=== PATIENT | male | born 1975 | race Caucasian/White ===

== ENCOUNTER 2019-04-16 01:47 | Observation (INO) | payer OTHER ==
--- NOTE | 2019-04-16 02:05 | PDOC ---
Attending Attestation - Resident Resident Name: Sadi Jarrell - ED Attending Attestation I have performed the following: I have examined & evaluated the patient, The case was reviewed & discussed with the resident, I agree w/resident's findings & plan - HPI HPI: 04/16/19 04:30 Pt had a syncopal episode today at home and he was brought in by his family. This has happened to him in the past. Pt has no complaints at present. He si somnolent. - Physicial Exam PE: 04/16/19 04:32 Pt is morbidly obese. - Medical Decision Making 04/16/19 02:52 Pt has no EKG for comparison 04/16/19 04:31 Patient Name: FELY ENGLISH THIS IS A PRELIMINARY REPORT FROM [facility] DATE OF SERVICE: 2019-04-16 02:57:18 IMAGES: [id number] EXAM: HEAD CT WITHOUT CONTRAST HISTORY: Trauma COMPARISON: None. FINDINGS: The ventricular system is midline and nondilated. The sulcal pattern is normal for the patient's age. There is no bleed, mass, extra-axial fluid collection or mass effect. No skull fracture or skull lesion is identified. The visualized paranasal sinuses and mastoid air cells are clear. IMPRESSION: No acute pathology 04/16/19 04:31 Patient Name: FELY ENGLISH THIS IS A PRELIMINARY REPORT FROM [facility] DATE OF SERVICE: 2019-04-16 02:55:13 IMAGES: 384 EXAM: CERVICAL SPINE CT W/O CONTR HISTORY: Trauma COMPARISON: None. FINDINGS: There is no fracture, subluxation, prevertebral soft tissue swelling or significant degenerative changes. The lung apices are clear. IMPRESSION: No fracture 04/16/19 04:32 labs pending. Pt has abnormal EKG; flat and flipped inferolateral T waves 04/16/19 05:39 All labs are still pending 04/16/19 06:21 chem IS PENDING CBC NORMAL INR NORMAL 04/17/19 00:01 Pt will be admitted to telemetry given all his risk factors. Heart Score/ECG Review - ECG Intrepretation Rhythm: Regular Rhythm - [place]: Normal - P and SD Delta Wave(s) Present: No WPW: No - QRS Poor R Wave Progression: No Q Wave Present: No - ST and T Early Repolarization: No Non Specific ST-T Wave changes: No Flattened T Waves: Yes Prolonged Q-T Interval: No - ECG Impressions Normal ECG: No Non-specific ST Elevation: No Ischemic Changes: Yes (inferolateral) Bradycardia: No Torsades new Pointes: No
--- NOTE | 2019-04-16 02:32 | PDOC ---
History of Present Illness - General Stated Complaint: SYNCOPE Time Seen by Provider: 04/16/19 02:04 History Source: Patient Exam Limitations: No Limitations - History of Present Illness Initial Comments: 04/16/19 02:27 43 yo male pmh asthma presents to the ED after syncopal episode and LOC. Pt reports drinking greater than 10 beers tonight, attempting to put on music, witnessed fall and had LOC for approx 1 min, returned to baseline after 5 min. Denies CP/Palpitations/SOB prior to or after the event, denies weakness/sensory changes on 1 side, denies coordination/balance changes, DURHAM, changes in vision. Pt admits to drinking heavily on the weekends much more than 10 beers without blackouts or LOC, was concerned due to never seeing pt in this state before. Denies recent illness, F/C/N/V, abdominal pain, changes in bowel or bladder habits. Pt states he feels well, at his baseline without any current complaints Past History - Past Medical History Allergies/Adverse Reactions: Allergies Allergy/AdvReac Type Severity Reaction Status Date / Time No Known Allergies Allergy Verified 04/16/19 05:16 Home Medications: Ambulatory Orders NK [No Known Home Medication] 04/16/19 - Psycho Social/Smoking Cessation Hx Smoking History: Never smoked Review of Systems - Review of Systems Constitutional: No: Chills, Fever HEENTM: No: Eye Pain, Blurred Vision, Double Vision Respiratory: No: Shortness of Breath, Productive cough Cardiac (ROS): Yes: Syncope. No: Chest Pain, Edema ABD/GI: No: Constipated, Diarrhea, Nausea, Vomiting : No: Burning, Dysuria, Frequency, Flank Pain Integumentary: No: Change in Color Neurological: No: Headache, Numbness, Paresthesia, Weakness, Ataxia, Dizziness *Physical Exam - Physical Exam General Appearance: Yes: Nourished, Appropriately Dressed, Alcohol on Breath, Intoxicated. No: Apparent Distress HEENT: positive: EOMI, SILVANA Neck: positive: Supple. negative: Carotid bruit Respiratory/Chest: positive: Lungs Clear, Normal Breath Sounds. negative: Respiratory Distress, Accessory Muscle Use, Rapid RR, Crackles, Rales, Rhonchi, Stridor, Wheezing Cardiovascular: positive: Regular Rhythm, Regular Rate, S1, S2. negative: Edema , JVD, Murmur Vascular Pulses: Dorsalis-Pedis (R): 4+, Doralis-Pedis (L): 4+ Gastrointestinal/Abdominal: positive: Flat, Soft. negative: Pulsatile Mass, Distended, Guarding, Rebound, Tenderness Musculoskeletal: positive: Normal Inspection. negative: CVA Tenderness Extremity: positive: Normal Capillary Refill, Normal Inspection, Normal Range of Motion Integumentary: positive: Normal Color, Dry, Warm Neurologic: positive: certified residential medication aide II-XII NML intact, Fully Oriented, Alert, Normal Mood/ Affect, Normal Response, Motor Strength 5/5. negative: Facial Droop, Numbness, Sensory Deficit, Confused, Disoriented ED Treatment Course - LABORATORY CBC & Chemistry Diagram: 04/16/19 04:55 04/16/19 04:55 Medical Decision Making - Medical Decision Making 04/16/19 03:29 43 yo male pmh asthma presents to the ED after syncopal episode and LOC. Pt reports drinking greater than 10 beers tonight, attempting to put on music, witnessed fall and had LOC for approx 1 min, returned to baseline after 5 min. Denies CP/Palpitations/SOB prior to or after the event, denies weakness/sensory changes on 1 side, denies coordination/balance changes, DUR[place], changes in vision. Pt admits to drinking heavily on the weekends much more than 10 beers without blackouts or LOC, was concerned due to never seeing pt in this state before. Denies recent illness, F/C/N/V, abdominal pain, changes in bowel or bladder habits. Pt states he feels well, at his baseline without any current complaints Vitals WNL C collar placed and will do head and c spine CT EKG NSR Likely DC home after results EKG NSR, T wave inversions V4-V6 no priors to compare Labs pending Will admit for syncope CT head and C spine neg for acute changes S/O to night team for admission Discharge - Discharge Information Problems reviewed: Yes Clinical Impression/Diagnosis: Syncope and collapse Condition: Stable - Follow up/Referral - Patient Discharge Instructions - Post Discharge Activity
[2019-04-16 05:41] LABS: BASO % 0.5 % (0-2.0); EOS % 3.2 % (0-4.5); HEMATOCRIT 44.6 % (35.4-49); HEMOGLOBIN 15.1 GM/dL (11.7-16.9); LYMPH % 32.1 % (8-40); MEAN CELL VOLUME 91.2 fl (80-96); MEAN PLT VOLUME 8.6 fl (7.5-11.1); MONO % 4.3 % (3.8-10.2); NEUT % 59.9 % (42.8-82.8); PLATELET COUNT 275 K/MM3 (134-434); RBC 4.89 M/mm3 (4.00-5.60); RDW 14.1 % (11.9-15.9); WHITE BLOOD COUNT 9.7 K/mm3 (4.0-10.0)
[2019-04-16 05:55] LABS: INR 1.08 (0.83-1.09); PROTHROMBIN TIME (PATIENT) 12.7 SEC (9.7-13.0)
[2019-04-16 06:50] LABS: ALBUMIN 3.7 g/dl (3.4-5.0); ALK PHOS 78 U/L (45-117); ANION GAP 9 MMOL/L (8-16); BILIRUBIN,TOTAL 0.4 mg/dL (0.2-1); BLOOD UREA NITROGEN 11.9 mg/dL (7-18); CALCIUM 8.3 mg/dL (8.5-10.1); CHLORIDE 106 mmol/L (98-107); CO2 23 mmol/L (21-32); GLUCOSE,RANDOM 90 mg/dL (74-106); POTASSIUM 3.6 mmol/L (3.5-5.1); SGOT/AST 58 U/L (15-37); SGPT/ALT 102 U/L (13-61); SODIUM 138 mmol/L (136-145); TOT PROT 7.1 g/dl (6.4-8.2)
--- NOTE | 2019-04-16 07:41 | PDOC ---
*Physical Exam - Vital Signs Last Vital Signs Temp Pulse Resp BP Pulse Ox 97.9 F 83 18 100/61 94 L 04/16/19 01:55 04/16/19 06:51 04/16/19 06:51 04/16/19 06:51 04/16/19 06:51 ED Treatment Course - LABORATORY CBC & Chemistry Diagram: 04/17/19 06:00 04/17/19 06:00 - ADDITIONAL ORDERS Additional order review: Laboratory Results 04/16/19 04/16/19 04:55 04:55 PT with INR 12.70 INR 1.08 Sodium 138 Potassium 3.6 Chloride 106 Carbon Dioxide 23 Anion Gap 9 BUN 11.9 Creatinine 1.0 Est GFR (CKD-EPI)AfAm 105.62 Est GFR (CKD-EPI)NonAf 91.13 Random Glucose 90 Calcium 8.3 L Total Bilirubin 0.4 AST 58 H ALT 102 H Alkaline Phosphatase 78 Creatine Kinase 238 Creatine Kinase Index 1.4 CK-MB (CK-2) 3.5 Troponin I < 0.02 Total Protein 7.1 Albumin 3.7 04/16/19 04:55 RBC 4.89 MCV 91.2 MCHC 34.0 RDW 14.1 MPV 8.6 Neutrophils % 59.9 Lymphocytes % 32.1 Monocytes % 4.3 Eosinophils % 3.2 Basophils % 0.5 Medical Decision Making - Medical Decision Making Patient signed out by Dr. Jarrell Pending admission Discussed case with Dr. Alvarenga Add on Mag, phos, etoh, utox Patient accepted to tele obs 04/16/19 07:40 Discharge - Discharge Information Problems reviewed: Yes Clinical Impression/Diagnosis: Syncope and collapse Condition: Improved Disposition: AGAINST MEDICAL ADVICE - Admission Yes - Follow up/Referral - Patient Discharge Instructions - Post Discharge Activity
[2019-04-16 08:16] LABS: MAGNESIUM 2.8 mg/dL (1.8-2.4); PHOSPHOROUS 4.3 mg/dL (2.5-4.9)
--- NOTE | 2019-04-16 09:03 | HP ---
CHIEF COMPLAINT: fall, loss of consciousness PCP: N/A HISTORY OF PRESENT ILLNESS: Patient is a 43 year old male with history of childhood mild intermittent asthma , presents after episode of fall and loss of consciousness. Endorses this episode occurred approx 2AM this morning, while patient was drinking beer ( endorses at least 12 cans of beer that day). Patient states he got up from the couch to change the music, and immediately fell down. Negative tremors, bowel or bladder incontinence. Denies prodromal dizziness, lightheadedness, changes in vision, chest pain, palpitations, or shortness of breath. Per patient's fiance at bedside, patient was unconscious for approx. two minutes, before spontaneously awaking. He was confused for one minute, and subsequently regained awareness. Currently, patient admits that he feels at his baseline. ER course was notable for: (1) CT head, cervical spine (2) Troponin 0.02 (3) Recent Travel: Denies PAST MEDICAL HISTORY: mild intermittent asthma PAST SURGICAL HISTORY: denies FAMILY HISTORY Father: liver cancer, at 7 years old. Mother: asthma, unknown "heart issues" Social History: Lives with trey and five year old son. 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 Independent in activities of daily living. Smoking: Admits smoking 1/2 pack per day for past 17 years Alcohol: Admits drinking up to 20 beers/ day, with 2-3 glasses of whiskey. Drugs: Admits cocaine (intranasally), last use was one week ago. Allergies No Known Allergies Allergy (Verified 04/16/19 05:16) HOME MEDICATIONS: Home Medications Medication Instructions Recorded NK [No Known Home Medication] 04/16/19 REVIEW OF SYSTEMS CONSTITUTIONAL: Absent: fever, chills, diaphoresis, generalized weakness, malaise, loss of appetite, weight change HEENT: Absent: rhinorrhea, nasal congestion, throat pain, throat swelling, difficulty swallowing, mouth swelling, ear pain, eye pain, visual changes CARDIOVASCULAR: Absent: chest pain, syncope, palpitations, irregular heart rate, lightheadedness , peripheral edema RESPIRATORY: Absent: cough, shortness of breath, dyspnea with exertion, orthopnea, wheezing, stridor, hemoptysis GASTROINTESTINAL: Absent: abdominal pain, abdominal distension, nausea, vomiting, diarrhea, constipation, melena, hematochezia GENITOURINARY: Absent: dysuria, frequency, urgency, hesitancy, hematuria, flank pain, genital pain MUSCULOSKELETAL: Absent: myalgia, arthralgia, joint swelling, back pain, neck pain SKIN: Absent: rash, itching, pallor HEMATOLOGIC/IMMUNOLOGIC: Absent: easy bleeding, easy bruising, lymphadenopathy, frequent infections ENDOCRINE: Absent: unexplained weight gain, unexplained weight loss, heat intolerance, cold intolerance NEUROLOGIC: Admits: headache, syncopal episode. Absent: focal weakness or paresthesias, dizziness, unsteady gait, seizure, mental status changes, bladder or bowel incontinence PSYCHIATRIC: Absent: anxiety, depression, suicidal or homicidal ideation, hallucinations. PHYSICAL EXAMINATION Vital Signs - 24 hr 04/16/19 04/16/19 01:55 06:51 Temperature 97.9 F Pulse Rate 82 Pulse Rate [ 83 Left Radial] Respiratory 19 18 Rate Blood Pressure 135/86 Blood Pressure 100/61 [Left Arm] O2 Sat by Pulse 98 94 L Oximetry (%) GENERAL: The patient is awake, alert, and fully oriented, in no acute distress. HEAD: Normocephalic, atraumatic. EYES: PERRL, extraocular movements intact, sclera anicteric, conjunctiva clear. ENT: Oropharynx clear, without erythema or exudates. Moist mucous membranes. NECK: Trachea midline, full range of motion. Supple without lymphadenopathy. LUNGS: Breath sounds equal, clear to auscultation bilaterally. No wheezes, no crackles. No accessory muscle use. HEART: Regular rate and rhythm. S1, S2 without murmur, rub or gallop. ABDOMEN: Obese abdomen. Soft, nondistended, nontender to light and deep palpation x4 quadrants. No rebound tenderness, no guarding. Normoactive bowel sounds x4 quadrants. Hepatomegaly palpated and percussed 2cm below right costal margin. EXTREMITIES: 2+ radial, dorsalis pedis pulses bilaterally. Warm, well-perfused. No lower extremity edema bilaterally. NEUROLOGICAL: Cranial nerves II through XII grossly intact. Normal speech. No gross focal deficits. CIWA 2 PSYCH: Normal mood, normal affect upon my encounter. SKIN: Warm, dry. Laboratory Results - last 24 hr 04/16/19 04/16/19 04/16/19 04:55 04:55 04:55 WBC 9.7 RBC 4.89 Hgb 15.1 Hct 44.6 MCV 91.2 MCH 31.0 MCHC 34.0 RDW 14.1 Plt Count 275 MPV 8.6 Absolute Neuts (auto) 5.8 Neutrophils % 59.9 Lymphocytes % 32.1 Monocytes % 4.3 Eosinophils % 3.2 Basophils % 0.5 Nucleated RBC % 0 PT with INR 12.70 INR 1.08 Sodium 138 Potassium 3.6 Chloride 106 Carbon Dioxide 23 Anion Gap 9 BUN 11.9 Creatinine 1.0 Est GFR (CKD-EPI)AfAm 105.62 Est GFR (CKD-EPI)NonAf 91.13 Random Glucose 90 Calcium 8.3 L Phosphorus 4.3 Magnesium 2.8 H Total Bilirubin 0.4 AST 58 H ALT 102 H Alkaline Phosphatase 78 Creatine Kinase 238 Creatine Kinase Index 1.4 CK-MB (CK-2) 3.5 Troponin I < 0.02 Total Protein 7.1 Albumin 3.7 ASSESSMENT/PLAN: Patient is a 43 year old male with history of childhood mild intermittent asthma , presents after episode of fall and loss of consciousness. Syncopal episode -Etiology likely secondary to excessive alcohol consumption, intoxication. Will obtain ETOH level STAT. However, noted right sided upper lip drooping, that patient's fiance at bedside states is not normal. CT head was negative for acute pathology. Will obtain MRI brain to evaluate for possible neurogenic etiology (?TIA). Currently no focal neurological defecits. NIHSS 1 -EKG reveals normal sinus rhythm at 88 BPM. Nonspecific T wave inversions noted in lead II, V5, V6. Initial troponin 0.02. -Obtain transthoracic ECHO. -Trend troponin -Orthostatic vial signs -Telemetry monitoring -Fall precautions Alcohol use disorder -Patient admits excessive alcohol consumption ongoing for numerous years. -ETOH level 169 -Currently not in withdrawal. CIWA of 2 for mild headache (however could be attributed to trauma of fall). -Monitor for signs of withdrawal. Will initiate Ativan protocol in CIWA greater than 6 -Thiamine, Folic acid, Multivitamin supplements -Fall precautions -Counselled regarding harms of excessive alcohol consumption. Transaminitis -ALT: AST ratio 2:1 which is suggestive of non-alcoholic fatty liver disease vs. acute hepatic injury. However, transaminitis may still be secondary to excessive alcohol consumption. Will also evaluate for viral hepatitis. -Follow transaminases -Hepatitis A/B/C serology -Right upper quadrant US FEN -IV normal saline with thiamine, folic acid at 125mL/ hour -Follow BMP -Regular diet Prophylaxis -SCDs bilateral lower extremities Disposition -Telemetry observation. Visit type - Emergency Visit Emergency Visit: Yes ED Registration Date: 04/16/19 Care time: The patient presented to the Emergency Department on the above date and was hospitalized for further evaluation of their emergent condition. - New Patient This patient is new to me today: Yes Date on this admission: 04/16/19 - Critical Care Critical Care patient: No ATTENDING PHYSICIAN STATEMENT I saw and evaluated the patient. I reviewed the resident's note and discussed the case with the resident. I agree with the resident's findings and plan as documented. SUBJECTIVE: OBJECTIVE: ASSESSMENT AND PLAN:
[2019-04-16] MEDS ORDERED: FOLIC ACID INJECTION - 1 MG, THIAMINE HCL 100 MG, MULTIVIT INJECTION ADULT 10 ML in SOD... IVPB ONE (09:30)
[2019-04-16] MEDS: FOLIC ACID 1 MG TABLET (FP) PO SCH (10:37)
[2019-04-16] MEDS: MULTIVITAMINS (DAILY MVI) TABLET (FP) PO SCH (10:37)
[2019-04-16] MEDS: THIAMINE HCL 100 MG TABLET (FP) PO SCH (10:37)
[2019-04-16] MEDS ORDERED: LORazepam 0.5 MG TABLET PO PRN (13:49)
--- NOTE | 2019-04-16 13:58 | EKG ---
Test Reason : Blood Pressure : / mmHG Vent. Rate : 088 BPM Atrial Rate : 088 BPM P-R Int : 150 ms QRS Dur : 098 ms QT Int : 392 ms P-R-T Axes : 037 029 050 degrees QTc Int : 474 ms NORMAL SINUS RHYTHM NONSPECIFIC T WAVE ABNORMALITY PROLONGED QT ABNORMAL ECG NO PREVIOUS ECGS AVAILABLE Confirmed by MD JOHNNY, LOBITO ([id number]) on 04/16/2019 1:57:26 PM Referred By: Confirmed By:LOBITO TURNER MD
--- NOTE | 2019-04-16 13:58 | PN ---
Teaching Attending Note Name of Resident: Daren Boyle ATTENDING PHYSICIAN STATEMENT I saw and evaluated the patient. I reviewed the resident's note and discussed the case with the resident. I agree with the resident's findings and plan as documented. SUBJECTIVE: Patient is a 43yom with PMhx of childhood asthma, presents after episode of fall and loss of consciousness around 2am this morning.Patient endorses drinking beer at least 12 cans or more. Patient states that he has gone into withdrawel x 1 in the past. OBJECTIVE: Vital Signs Temperature 97.9 F 04/16/19 01:55 Pulse Rate 88 04/16/19 13:04 Respiratory Rate 18 04/16/19 06:51 Blood Pressure 161/101 H 04/16/19 13:04 O2 Sat by Pulse Oximetry (%) 94 L 04/16/19 06:51 GENERAL: The patient is awake, alert, and fully oriented, in no acute distress. HEAD: Normal with no signs of trauma. EYES: PERRL, extraocular movements intact, sclera anicteric, conjunctiva redness . ENT: Ears normal, oropharynx clear without exudates, moist mucous membranes. NECK: Trachea midline, full range of motion, supple. LUNGS: Breath sounds equal, clear to auscultation bilaterally, no wheezes, no crackles, no accessory muscle use. HEART: Regular rate and rhythm, S1, S2 without murmur, rub or gallop. ABDOMEN: Soft, nontender, nondistended, normoactive bowel sounds, no guarding, no rebound, no hepatosplenomegaly, no masses. EXTREMITIES: 2+ pulses, warm, well-perfused, no edema. NEUROLOGICAL: Cranial nerves II through XII grossly intact. Normal speech, gait not observed. PSYCH: Normal mood, normal affect. SKIN: Warm, dry, normal turgor, no rashes or lesions noted CBCD WBC 9.7 K/mm3 (4.0-10.0) 04/16/19 04:55 RBC 4.89 M/mm3 (4.00-5.60) 04/16/19 04:55 Hgb 15.1 GM/dL (11.7-16.9) 04/16/19 04:55 Hct 44.6 % (35.4-49) 04/16/19 04:55 MCV 91.2 fl (80-96) 04/16/19 04:55 MCHC 34.0 g/dl (32.0-35.9) 04/16/19 04:55 RDW 14.1 % (11.9-15.9) 04/16/19 04:55 Plt Count 275 K/MM3 (134-434) 04/16/19 04:55 MPV 8.6 fl (7.5-11.1) 04/16/19 04:55 CMP Sodium 138 mmol/L (136-145) 04/16/19 04:55 Potassium 3.6 mmol/L (3.5-5.1) 04/16/19 04:55 Chloride 106 mmol/L (98-107) 04/16/19 04:55 Carbon Dioxide 23 mmol/L (21-32) 04/16/19 04:55 Anion Gap 9 MMOL/L (8-16) 04/16/19 04:55 BUN 11.9 mg/dL (7-18) 04/16/19 04:55 Creatinine 1.0 mg/dL (0.55-1.3) 04/16/19 04:55 Random Glucose 90 mg/dL (74-106) 04/16/19 04:55 Calcium 8.3 mg/dL (8.5-10.1) L 04/16/19 04:55 Total Bilirubin 0.4 mg/dL (0.2-1) 04/16/19 04:55 AST 58 U/L (15-37) H 04/16/19 04:55 ALT 102 U/L (13-61) H 04/16/19 04:55 Alkaline Phosphatase 78 U/L (45-117) 04/16/19 04:55 Total Protein 7.1 g/dl (6.4-8.2) 04/16/19 04:55 Albumin 3.7 g/dl (3.4-5.0) 04/16/19 04:55 CARDIAC ENZYMES Creatine Kinase 238 U/L (26-308) 04/16/19 04:55 Troponin I < 0.02 ng/ml (0.00-0.05) 04/16/19 04:55 Current Medications Generic Name Dose Route Start Last Admin Trade Name Freq PRN Reason Stop Dose Admin Folic Acid 1 mg 04/16/19 10:00 04/16/19 10:37 Folic Acid - PO 1 mg DAILY NICK Administration Folic Acid 1 mg/ Thiamine HCl 1,000 mls @ 125 mls/hr 04/16/19 09:30 04/16/19 10:37 100 mg/ Multivitamins/Minerals IVPB 04/16/19 17:29 125 mls/hr 10 ml/ Sodium Chloride ONCE ONE Administration Lorazepam 2 mg 04/16/19 17:00 Ativan PO 04/17/19 23:01 0500,1100,1700,2300 NICK Lorazepam 0.5 mg 04/19/19 05:00 Ativan - PO 04/19/19 23:01 Q6H NICK Lorazepam 0.5 mg 04/19/19 00:00 Ativan - PO 04/20/19 00:00 Q4H PRN Symptoms of Withdrawal Lorazepam 0.5 mg 04/20/19 05:00 Ativan - PO 04/20/19 05:01 ONCE ONE Lorazepam 1 mg 04/18/19 05:00 Ativan - PO 04/18/19 23:01 0500,1100,1700,2300 NICK Lorazepam 1 mg 04/16/19 13:49 Ativan - PO 04/18/19 23:59 Q4H PRN Symptoms of Withdrawal Multivitamins/Minerals/Vitamin C 1 tab 04/16/19 10:00 04/16/19 10:37 Tab-A-Vit - PO 1 tab DAILY NICK Administration Thiamine HCl 100 mg 04/16/19 10:00 04/16/19 10:37 Vitamin B1 - PO 100 mg DAILY NICK Administration Home Medications Medication Instructions Recorded NK [No Known Home Medication] 04/16/19 ETOH level: 169 EKG reveals normal sinus rhythm at 88 BPM. Nonspecific T wave inversions noted in lead II, V5, V6. Initial troponin 0.02. CT of the head negative ASSESSMENT AND PLAN: Patient is a 43 year old male with PMHx of childhood asthma, presents after episode of fall and loss of consciousness with alcohol intoxication. # Syncopal episode most likely due to alcohol intoxication with a level of 169. echo ordered with T inversion of the lateral leads. Trend troponin, Orthostatic vial signs, tele obs,Telemetry monitoring, Fall precautions #Alcohol dependency: patient was consulted regarding the alcohol ceasation. Thiamine, Folic acid, Multivitamin supplements, Fall precautions. #Acute Transaminitis due to alcohol intoxication/fatty Liver will get Us of the abdomen, Hepatitis A/B/C serology # Elevated BP: will monitor if needed michael add antihypertensive agent. DVT Px: SCDs bilateral lower extremities Telemetry observation.
[2019-04-16] MEDS ORDERED: LORazepam 0.5 MG TABLET ONE (16:13)
[2019-04-16] MEDS: LORazepam 0.5 MG TABLET PO SCH ×2 (16:20→22:26)
[2019-04-16 23:16] VITALS: BMI 39.7
[2019-04-16] MEDS: cloNIDine HCL 0.1 MG TABLET PO PRN (23:43)
[2019-04-16 23:54] LABS: METHADONE, UR NEGATIVE ng/ml (CUTOFF=300); OPIATES, URI NEGATIVE ng/ml (CUTOFF=300); PHENCYCLIDINE,URINE NEGATIVE ng/ml (CUTOFF=25); URINE AMPHETAMINES NEGATIVE ng/ml (CUTOFF=500); URINE BARBITURATES NEGATIVE ng/ml (CUTOFF=200); URINE BENZODIAZEPINES NEGATIVE ng/ml (CUTOFF=200)
[2019-04-17 00:02] LABS: COCAINE, UR POSITIVE ng/ml (CUTOFF=300)
[2019-04-17] MEDS: LORazepam 0.5 MG TABLET PO SCH ×2 (06:05→10:33)
[2019-04-17 07:28] LABS: HEMATOCRIT 43.5 % (35.4-49); HEMOGLOBIN 14.7 GM/dL (11.7-16.9); MCH 30.8 pg (25.7-33.7); MCHC 33.9 g/dl (32.0-35.9); MEAN CELL VOLUME 90.8 fl (80-96); MEAN PLT VOLUME 8.5 fl (7.5-11.1); PLATELET COUNT 260 K/MM3 (134-434); RBC 4.79 M/mm3 (4.00-5.60); RDW 14.3 % (11.9-15.9); WHITE BLOOD COUNT 7.7 K/mm3 (4.0-10.0)
[2019-04-17 09:00] LABS: ALBUMIN 3.2 g/dl (3.4-5.0); BILIRUBIN,TOTAL 0.6 mg/dL (0.2-1); BLOOD UREA NITROGEN 11.9 mg/dL (7-18); CALCIUM 8.1 mg/dL (8.5-10.1); CREATININE 0.9 mg/dL (0.55-1.3); MAGNESIUM 2.9 mg/dL (1.8-2.4); PHOSPHOROUS 2.9 mg/dL (2.5-4.9); POTASSIUM 3.8 mmol/L (3.5-5.1); TOT PROT 6.3 g/dl (6.4-8.2)
--- NOTE | 2019-04-17 09:15 | CON.CARD ---
Consult Consult Specialty:: CV - History of Present Illness Chief Complaint: syncope History of Present Illness: 43 M here with LOC. reports had 12 cans of beer or more yest evening. around 2 am got up from couch and fell to floor. does not recall prodrome of any sort. finace witnessed--estimates LOC duration approx 2 min no signif post-event confusion (brief period of disorientation only, 1 min or less0. no witnessed sz tonic activity, no incontinence ER: BP to 160s/110s o/w vitals stable. urine + cocaine. AST/LT mildly elevated. trop neg x 2 PMH: mild asthma - Alcohol/Substance Use Hx Alcohol Use: Yes (drinks alot only on wknds) - Smoking History Smoking history: Current every day smoker Have you smoked in the past 12 months: Yes Aproximately how many cigarettes per day: 9 Home Medications - Allergies Allergies/Adverse Reactions: Allergies Allergy/AdvReac Type Severity Reaction Status Date / Time No Known Allergies Allergy Verified 04/16/19 05:16 - Home Medications Home Medications: Ambulatory Orders NK [No Known Home Medication] 04/16/19 Vital Signs: Vital Signs Temperature 98.1 F 04/17/19 09:07 Pulse Rate 87 04/17/19 09:07 Respiratory Rate 20 04/17/19 09:07 Blood Pressure 147/106 H 04/17/19 09:07 O2 Sat by Pulse Oximetry (%) 96 04/17/19 00:00 - Other Data Labs, Other Data: CBC, BMP 04/17/19 06:00 04/17/19 06:00 INR, PTT INR 1.08 (0.83-1.09) 04/16/19 04:55 Troponin, BNP 04/16/19 04/16/19 04:55 19:24 Troponin I < 0.02 < 0.02 Troponin, BNP 04/16/19 04/16/19 04:55 19:24 Troponin I < 0.02 < 0.02 Assessment/Plan ECG: NSR, QT mildly prolonged. NSTWAs (no priors) CXR: clear lungs/pleura CT head: no acute pathology syncope: -likely orthostatic hypotension related to vol depletion from marked etoh binge , +/- cocaine contributing. -no ischemia on ecg, trop neg x 2, no angina sx's. -nonsp ECG changes--echo to r/o CMP related to substance abuse HTN: -no prior hx, ? degree of prior medical f/u -possibly triggered by etoh +/- cocaine -rec amlodipine to start--observe trend etoh, cocaine: -pt counselled on hi risk of serious medical problems and even , and strongly advised re: cessation
[2019-04-17] MEDS: FOLIC ACID 1 MG TABLET (FP) PO SCH (09:22)
[2019-04-17] MEDS: MULTIVITAMINS (DAILY MVI) TABLET (FP) PO SCH (09:22)
[2019-04-17] MEDS: THIAMINE HCL 100 MG TABLET (FP) PO SCH (09:22)
[2019-04-17] MEDS ORDERED: amLODIPine BESYLATE 5 MG TABLET (FP) PO SCH (10:00)
--- NOTE | 2019-04-17 12:27 | ECHO ---
Name: FELY ENGLISH Exam:Adult Echocardiogram Study Date: 04/17/2019 10:56 AM Age: 43 yrs Reason For Study: syncopal episode Height: 68 in Weight: 230 lb BSA: 2.2 m2 MMode/2D Measurements & Calculations IVSd: 1.2 cm Ao root diam: 3.0 cm LVIDd: 5.2 cm LA dimension: 3.4 cm LVIDs: 3.8 cm LVPWd: 1.2 cm LVPWs: 1.4 cm EDV(Teich): 129.8 ml ESV(Teich): 61.0 ml LVOT diam: 2.0 cm LAV (MOD-bp): 42.1 ml RV S Jarek: 13.5 cm/sec Doppler Measurements & Calculations MV E max jarek: 67.9 cm/sec Ao V2 max: 120.4 cm/sec MV A max jarek: 90.2 cm/sec Ao max P.8 mmHg MV E/A: 0.75 ANTHONY(V,D): 3.3 cm2 MV dec time: 0.15 sec LV V1 max P.9 mmHg PA V2 max: 111.4 cm/sec LV V1 max: 121.5 cm/sec PA max P.0 mmHg Med Peak E' Jarek: 4.9 cm/sec Med E/e': 13.9 Lat Peak E' Jarek: 10.2 cm/sec Lat E/e': 6.6 Procedure Study Quality: Fair. Left Ventricle The left ventricle is normal in size. There is mild concentric left ventricular hypertrophy. Ejection Fraction = 60-65%. The transmitral spectral Doppler flow pattern is suggestive of impaired LV relaxation. Right Ventricle The right ventricle is grossly normal size. The right ventricular systolic function is normal. Atria Normal left and right atrial size and function. Mitral Valve The mitral valve leaflets appear normal. There is no evidence of stenosis, fluttering, or prolapse. Tricuspid Valve The tricuspid valve is not well visualized, but is grossly normal. Aortic Valve The aortic valve is normal in structure and function. Pulmonic Valve The pulmonic valve is not well visualized. Great Vessels The aortic root is normal size. Pericardium/Pleura There is no pericardial effusion. Fat pad. Interpretation Summary LV: Normal size, mild LVH, normal systolic function, EF 60-65%, relaxation abnormality RV: Normal No significant valvular dysfunction. Haile Carlisle 04/17/2019 12:26 PM
--- NOTE | 2019-04-17 13:01 | PN ---
Teaching Attending Note Name of Resident: Zach Nicole ATTENDING PHYSICIAN STATEMENT I saw and evaluated the patient. I reviewed the resident's note and discussed the case with the resident. I agree with the resident's findings and plan as documented. SUBJECTIVE: Patient is feeling better with no acute distress. Vital Signs Temperature 98.1 F 04/17/19 09:07 Pulse Rate 87 04/17/19 09:07 Respiratory Rate 20 04/17/19 09:07 Blood Pressure 147/106 H 04/17/19 09:07 O2 Sat by Pulse Oximetry (%) 96 04/17/19 08:00 GENERAL: The patient is awake, alert, and fully oriented, in no acute distress. HEAD: Normal with no signs of trauma. EYES: PERRL, extraocular movements intact, sclera anicteric, conjunctiva redness . ENT: Ears normal, oropharynx clear without exudates, moist mucous membranes. NECK: Trachea midline, full range of motion, supple. LUNGS: Breath sounds equal, clear to auscultation bilaterally, no wheezes, no crackles, no accessory muscle use. HEART: Regular rate and rhythm, S1, S2 without murmur, rub or gallop. ABDOMEN: Soft, nontender, nondistended, normoactive bowel sounds, no guarding, no rebound, no hepatosplenomegaly, no masses. EXTREMITIES: 2+ pulses, warm, well-perfused, no edema. NEUROLOGICAL: Cranial nerves II through XII grossly intact. Normal speech, gait not observed. PSYCH: Normal mood, normal affect. SKIN: Warm, dry, normal turgor, no rashes or lesions noted CBCD WBC 7.7 K/mm3 (4.0-10.0) 04/17/19 06:00 RBC 4.79 M/mm3 (4.00-5.60) 04/17/19 06:00 Hgb 14.7 GM/dL (11.7-16.9) 04/17/19 06:00 Hct 43.5 % (35.4-49) 04/17/19 06:00 MCV 90.8 fl (80-96) 04/17/19 06:00 MCHC 33.9 g/dl (32.0-35.9) 04/17/19 06:00 RDW 14.3 % (11.9-15.9) 04/17/19 06:00 Plt Count 260 K/MM3 (134-434) 04/17/19 06:00 MPV 8.5 fl (7.5-11.1) 04/17/19 06:00 CMP Sodium 139 mmol/L (136-145) 04/17/19 06:00 Potassium 3.8 mmol/L (3.5-5.1) 04/17/19 06:00 Chloride 107 mmol/L (98-107) 04/17/19 06:00 Carbon Dioxide 27 mmol/L (21-32) 04/17/19 06:00 Anion Gap 5 MMOL/L (8-16) L 04/17/19 06:00 BUN 11.9 mg/dL (7-18) 04/17/19 06:00 Creatinine 0.9 mg/dL (0.55-1.3) 04/17/19 06:00 Random Glucose 96 mg/dL (74-106) 04/17/19 06:00 Calcium 8.1 mg/dL (8.5-10.1) L 04/17/19 06:00 Total Bilirubin 0.6 mg/dL (0.2-1) 04/17/19 06:00 AST 44 U/L (15-37) H 04/17/19 06:00 ALT 90 U/L (13-61) H 04/17/19 06:00 Alkaline Phosphatase 80 U/L (45-117) 04/17/19 06:00 Total Protein 6.3 g/dl (6.4-8.2) L 04/17/19 06:00 Albumin 3.2 g/dl (3.4-5.0) L 04/17/19 06:00 CARDIAC ENZYMES Creatine Kinase 190 U/L (26-308) 04/16/19 19:24 Troponin I < 0.02 ng/ml (0.00-0.05) 04/16/19 19:24 Current Medications Generic Name Dose Route Start Last Admin Trade Name Freq PRN Reason Stop Dose Admin Amlodipine Besylate 5 mg 04/17/19 10:00 04/17/19 10:33 Norvasc - PO 5 mg DAILY NICK Administration Clonidine 0.1 mg 04/16/19 22:26 04/16/19 23:43 Catapres - PO 0.1 mg BID PRN Administration HYPERTENSION Folic Acid 1 mg 04/16/19 10:00 04/17/19 09:22 Folic Acid - PO 1 mg DAILY NICK Administration Lorazepam 2 mg 04/16/19 17:00 04/17/19 10:33 Ativan - PO 04/17/19 23:01 2 mg 0500,1100,1700,2300 NICK Administration Lorazepam 0.5 mg 04/19/19 05:00 Ativan - PO 04/19/19 18:01 Q6HPO NICK Lorazepam 0.5 mg 04/19/19 00:00 Ativan - PO 04/20/19 00:00 Q4H PRN Symptoms of Withdrawal Lorazepam 0.5 mg 04/20/19 05:00 Ativan - PO 04/20/19 05:01 ONCE ONE Lorazepam 1 mg 04/18/19 05:00 Ativan - PO 04/18/19 23:01 0500,1100,1700,2300 NICK Lorazepam 1 mg 04/16/19 13:49 Ativan - PO 04/18/19 23:59 Q4H PRN Symptoms of Withdrawal Multivitamins/Minerals/Vitamin C 1 tab 04/16/19 10:00 04/17/19 09:22 Tab-A-Vit - PO 1 tab DAILY NICK Administration Thiamine HCl 100 mg 04/16/19 10:00 04/17/19 09:22 Vitamin B1 - PO 100 mg DAILY NICK Administration Home Medications Medication Instructions Recorded NK [No Known Home Medication] 04/16/19 ETOH level: 169 EKG reveals normal sinus rhythm at 88 BPM. Nonspecific T wave inversions noted in lead II, V5, V6. Initial troponin 0.02. CT of the head negative Echo: LV is normal, mild concentric left ventricular hypertrophy, EJF 60-65% .normal systolic function RUQ US: gallbladder is partially filled with a sludge without sonographic evidence of acute cholecystitis, non visualized of the pancreas. ASSESSMENT AND PLAN: Patient is a 43 year old male with PMHx of childhood asthma, presents after episode of fall and loss of consciousness with alcohol intoxication. # Syncopal episode most likely due to alcohol intoxication with a level of 169. echo ordered as above, no acute pathology, with T inversion of the lateral leads. # T-wave inversion : Cocaine use on and off, used the day prior to admission. troponins negative. #Alcohol dependency: patient was consulted regarding the alcohol ceasation. Thiamine, Folic acid, Multivitamin supplements, Fall precautions. #Acute Transaminitis due to alcohol intoxication/fatty Liver, as above the result of US, + Gallstones but no cholecystitis , Hepatitis A/B/C serology pending, # Elevated BP: will keep on clonidine and norvasc low dose 2.5mg . DVT Px: SCDs bilateral lower extremities dc patient to rehab detox to complete the protocol
--- NOTE | 2019-04-17 13:31 | DS ---
Physical Exam: SUBJECTIVE: Patient seen and examined at bedside. He was admitted overnight. This AM he offers no complaints. OBJECTIVE: Vital Signs Temp Pulse Resp BP Pulse Ox 98.4 F 88 20 153/100 96 04/17/19 13:00 04/17/19 13:00 04/17/19 13:00 04/17/19 14:22 04/17/19 08:00 PHYSICAL EXAM GENERAL: AOx3, in no acute distress. HEAD: NCAT EYES: JOSUÉ, EOMI, conjunctiva clear. ENT: Ears normal, nares patent, oropharynx clear without exudates. Moist mucous membranes. NECK: Normal range of motion, supple without lymphadenopathy, JVD, or masses. LUNGS: CTAB. No wheezes, and no crackles. No accessory muscle use. HEART: RRR s1 s2 ABDOMEN: Obese, soft, BS present in all 4 quadrants, non-distended, no JVD, MUSCULOSKELETAL: No bony deformities or tenderness. No CVA tenderness. UPPER EXTREMITIES: 2+ pulses, warm, well-perfused. No cyanosis. No clubbing. No peripheral edema. LOWER EXTREMITIES: 2+ pulses, warm, well-perfused. No calf tenderness. No peripheral edema. NEUROLOGICAL: No focal deficits. Cranial nerves II-XII intact. Normal speech. Gait not appreciated. PSYCHIATRIC: Cooperative. Good eye contact. Appropriate mood and affect. SKIN: Warm, dry, normal turgor, no rashes or lesions noted, normal capillary refill. LABS 04/16/19 04/16/19 04/17/19 19:24 23:10 06:00 WBC 7.7 RBC 4.79 Hgb 14.7 Hct 43.5 MCV 90.8 MCH 30.8 MCHC 33.9 RDW 14.3 Plt Count 260 MPV 8.5 Sodium Potassium Chloride Carbon Dioxide Anion Gap BUN Creatinine Est GFR (CKD-EPI)AfAm Est GFR (CKD-EPI)NonAf Random Glucose Hemoglobin A1c % Calcium Phosphorus Magnesium Total Bilirubin AST ALT Alkaline Phosphatase Creatine Kinase 190 Creatine Kinase Index 1.2 CK-MB (CK-2) 2.3 Troponin I < 0.02 Total Protein Albumin TSH Opiates Screen Negative Methadone Screen Negative Barbiturate Screen Negative Phencyclidine Screen Negative Ur Amphetamines Screen Negative MDMA (Ecstasy) Screen Negative Benzodiazepines Screen Negative Cocaine Screen Positive A* U Marijuana (THC) Screen Negative 04/17/19 04/17/19 06:00 06:00 WBC RBC Hgb Hct MCV MCH MCHC RDW Plt Count MPV Sodium 139 Potassium 3.8 Chloride 107 Carbon Dioxide 27 Anion Gap 5 L BUN 11.9 Creatinine 0.9 Est GFR (CKD-EPI)AfAm 119.97 Est GFR (CKD-EPI)NonAf 103.51 Random Glucose 96 Hemoglobin A1c % 6.1 Calcium 8.1 L Phosphorus 2.9 Magnesium 2.9 H Total Bilirubin 0.6 AST 44 H ALT 90 H Alkaline Phosphatase 80 Creatine Kinase Creatine Kinase Index CK-MB (CK-2) Troponin I Total Protein 6.3 L Albumin 3.2 L TSH 4.37 H Opiates Screen Methadone Screen Barbiturate Screen Phencyclidine Screen Ur Amphetamines Screen MDMA (Ecstasy) Screen Benzodiazepines Screen Cocaine Screen U Marijuana (THC) Screen HOSPITAL COURSE: Date of Admission:04/16/19 43 y/o male PMH asthma in childhood whom presents after episode of fall and loss of consciousness at home s/p alcohol intoxication. Alcohol level of 169. Echo ordered as above, no acute pathology, with T inversion of the lateral leads. T-wave inversion. He admits cocaine use on and off and was postive this admission. Troponins negative. He was given thiamine, folic acid, multivitamin supplements, ativen protocol and fall precautions initiated. US, + Gallstones but no cholecystitis , Hepatitis A/B/C serology pending. Elevated BP treated with clonidine and norvasc low dose 2.5mg. He was advised to go to [facility] for detox, he was accepted by Dr. Moran, a bed was made available and he then decided to decline and leave [place]. Date of Discharge: 04/17/19 Zach Nicole MD Minutes to complete discharge: 40 Discharge Summary Problems reviewed: Yes Reason For Visit: SYNCOPE AND COLLAPSE Current Active Problems Alcohol abuse (Acute) Cocaine abuse (Acute) Condition: Improved - Instructions Diet, Activity, Other Instructions: YOUR VISIT You came to the hospital because you experienced an episode of loss of consciousness. You were admitted to the hospital for care of this concern. While here you were seen by a fleet sales manager. You are now stable and may return home. MEDICATIONS Please continue to take your medications as prescribed; You will take Amlodipine 2.5mg daily for your high blood pressure Take Clonidine 0.1mg twice a day for your high blood pressure Take Thiamine, Folic Acid, Multivitamins ADDITIONAL CARE Please make an appointment to see a primary care provider 1 week from today. If you prefer, you can be seen at the [facility] residents clinic located at [facility] [place] [address]. Please call to make an appointment. If you would like to continue seeing Dr. Zach Nicole, please ask for a Wednesday morning appointment. Please make an appointment to see a fleet sales manager in 1 week. A referral has to Dr. aMtt has been provided. You are STRONGLY ADVISED to STOP using any alcohol or any illicit drugs. Follow up with [facility] for your Detox, and Rehab afterwards to assist in alcohol/ drug abstinence. ADDITIONAL INFORMATION Please call 552 or come directly to the emergency department if you experience unusual headache, vision change, shortness of breath, chest pain, numbness, tingling, loss of alertness/awareness, loss of function, unusual bleeding or any alarming symptoms. Referrals: [facility] [Provider Group] Luiz Paez MD [Staff Physician] - Aakash Matt MD [Staff Physician] - Disposition: AGAINST MEDICAL ADVICE - Home Medications Comprehensive Discharge Medication List: Ambulatory Orders Amlodipine Besylate [Norvasc -] 2.5 mg PO DAILY tablet 04/17/19 Folic Acid - 1 mg PO DAILY tablet 04/17/19 Multivitamins [Multivit ([facility] Formulary)] 1 tab PO DAILY tab 04/17/19 Thiamine HCl [Vitamin B1 -] 100 mg PO DAILY 30 Days #30 tablet 04/17/19 cloNIDine HCL [Catapres -] 0.1 mg PO BID PRN tablet 04/17/19 This patient is new to me today: No Emergency Visit: No Critical Care patient: No - Discharge Referral Referred to [facility] No ATTENDING PHYSICIAN STATEMENT I saw and evaluated the patient. I reviewed the resident's note and discussed the case with the resident. I agree with the resident's findings and plan as documented. SUBJECTIVE: OBJECTIVE: ASSESSMENT AND PLAN:
[2019-04-17 14:23] VITALS: BP 153/100; PULSE 88; TEMP 98.4
[2019-04-17] MEDS: cloNIDine HCL 0.1 MG TABLET PO PRN (15:04)
--- NOTE | 2019-04-17 16:50 | CON.CARD ---
Consult Consult Specialty:: Cardiology Referred by:: Medicine Reason for Consultation:: syncope - History of Present Illness Chief Complaint: syncope History of Present Illness: 43M h/o asthma, EtOH and cocaine use p/w syncope. Patient was drinking beer through the day, 12 cans, and got up from couch to stand up and fell down. Lost consciousness for 3 min per pt fiance, woke up and was confused initially then was back to normal. Currently no chest pain, palps, dizziness, dyspnea - Alcohol/Substance Use Hx Alcohol Use: Yes (drinks alot only on wknds) - Smoking History Smoking history: Current every day smoker Have you smoked in the past 12 months: Yes Aproximately how many cigarettes per day: 9 Home Medications - Allergies Allergies/Adverse Reactions: Allergies Allergy/AdvReac Type Severity Reaction Status Date / Time No Known Allergies Allergy Verified 04/16/19 05:16 - Home Medications Home Medications: Ambulatory Orders Amlodipine Besylate [Norvasc -] 2.5 mg PO DAILY tablet 04/17/19 Folic Acid - 1 mg PO DAILY tablet 04/17/19 Multivitamins [Multivit ([facility] Formulary)] 1 tab PO DAILY tab 04/17/19 Thiamine HCl [Vitamin B1 -] 100 mg PO DAILY 30 Days #30 tablet 04/17/19 cloNIDine HCL [Catapres -] 0.1 mg PO BID PRN tablet 04/17/19 Family Medical History Family History: Unremarkable Review of Systems - Review of Systems Constitutional: reports: No Symptoms Eyes: reports: No Symptoms HENT: reports: No Symptoms Neck: reports: No Symptoms Cardiovascular: reports: No Symptoms Respiratory: reports: No Symptoms Gastrointestinal: reports: No Symptoms Genitourinary: reports: No Symptoms Musculoskeletal: reports: No Symptoms Integumentary: reports: No Symptoms Neurological: reports: No Symptoms Endocrine: reports: No Symptoms Hematology/Lymphatic: reports: No Symptoms Psychiatric: reports: No Symptoms Vital Signs: Vital Signs Temperature 98.4 F 04/17/19 13:00 Pulse Rate 88 04/17/19 13:00 Respiratory Rate 20 04/17/19 13:00 Blood Pressure 153/100 04/17/19 14:22 O2 Sat by Pulse Oximetry (%) 96 04/17/19 08:00 Constitutional: Yes: No Distress, Calm Eyes: Yes: Conjunctiva Clear, EOM Intact HENT: Yes: Atraumatic, Normocephalic Neck: Yes: Supple, Trachea Midline Respiratory: Yes: Regular, CTA Bilaterally Gastrointestinal: Yes: Normal Bowel Sounds, Soft Cardiovascular: Yes: Regular Rate and Rhythm JVD: No Heart Sounds: Yes: S1, S2 Extremities: No: Cold Edema: No Integumentary: No: Jaundice Neurological: Yes: Alert, Oriented Psychiatric: No: Agitated - Other Data Labs, Other Data: CBC, BMP 04/17/19 06:00 04/17/19 06:00 INR, PTT INR 1.08 (0.83-1.09) 04/16/19 04:55 Troponin, BNP 04/16/19 19:24 Troponin I < 0.02 Troponin, BNP 04/16/19 19:24 Troponin I < 0.02 Assessment/Plan EKG: sinus, prolonged QTc 474 ms, no ischemic changes tele: sinus syncope - likely 2/2 EtOH consumption, cocaine - echo unremarkable here - trop neg x 2 - no further cardiac testing at this point EtOH abuse, cocaine abuse - advised EtOH and cocaine cessation - refused detox HTN - improved with amlodipine, continue elevated LFTs - manage per primary prolonged QTc - maintain K>4, Mg >2 - avoid QT prolonging agents stable for dc from cardiac perspective
[2019-04-18] MEDS ORDERED: LORazepam 0.5 MG TABLET PO SCH (05:00)
[2019-04-19] MEDS ORDERED: LORazepam 0.5 MG TABLET PO PRN
[2019-04-19 03:07] LABS: HEP B CORE AB, TOT Negative (Negative)
[2019-04-19] MEDS ORDERED: LORazepam 0.5 MG TABLET PO SCH (05:00)
[2019-04-20] MEDS ORDERED: LORazepam 0.5 MG TABLET PO ONE (05:00)
== END 2019-04-17 18:05 | disposition left against medical advice (07) ==
LOC: JER 01:47 → JERBED 07:41 → J4S 21:17
PROVIDERS: ADMIT Internal Medicine; ATTEND Internal Medicine
PROC: 3E0337Z Introduction of Electrolytic and Water Balance Substance into Peripheral Vein, Percutaneous Approach (ICD-10-PCS; principal; 2019-04-16)
DX: R55 Syncope and collapse (principal); F10.20 Alcohol dependence, uncomplicated; Y90.6 Blood alcohol level of 120-199 mg/100 ml; R74.0 Nonspecific elevation of levels of transaminase and lactic acid dehydrogenase [LDH]; R03.0 Elevated blood-pressure reading, without diagnosis of hypertension; E66.01 Morbid (severe) obesity due to excess calories; Z68.39 Body mass index [BMI] 39.0-39.9, adult; W18.39XA Other fall on same level, initial encounter; Y93.89 Activity, other specified; Y92.89 Other specified places as the place of occurrence of the external cause
CPT/HCPCS: 36415; 70450-TC; 71045-TC-FY; 72125-TC; 76705-TC; 80053; 80168; 80307; 82550; 82553; 83036; 83735; 84100; 84443; 84484; 85025; 85027; 85610; 86704; 86706; 86707; 86708; 86709; 86803; 87340; 93005; 93010; 93306-TC; 96360; 96361; 99285-25; G0378; J0735; J7030